=== PATIENT | female | born 1935 | race Caucasian/White ===

== ENCOUNTER 2025-06-25 21:38 | Emergency (ER) | payer MEDICARE, SELFPAY ==
[2025-06-25 21:42] VITALS: BP 160/81; BMI 34.0
[2025-06-25 21:45] VITALS: BP 160/81
[2025-06-25 22:00] VITALS: BP 156/78
--- NOTE | 2025-06-25 22:28 | ED.GENMED ---
History of Present Illness
General
Chief Complaint: Fall
Source: patient
Exam Limitations: none
Time Seen by Provider: 06/25/25 21:59
Nursing documentation reviewed up to this point in time: agreed with
History of Present Illness
History of Present Illness:
89-year-old female presents from EMS. Patient apparently slipped out of bed on her way to the bathroom and fell and hit her head on the dresser. EMS was called. She denies any headache. She is not on blood thinners as per daughter. She
complained of mild left shoulder pain but denies pain now.
Daughter reports patient was complaining today that she was not feeling well. She was incidentally found to have a temperature of 100.
Patient denies any recent cough urinary frequency urgency. Patient is not on blood thinners. no cough, no sob.
Phy Exam
General Physical Exam
General Presentation: no apparent distress
General age: appears stated age
General Skin: warm and dry
General Habitus: normal
General Mental: alert
General Hydration: appears well hydrated
Neurological Exam
Neurological Exam: alert and oriented x3
Musculoskeletal Exam
Musculoskeletal Exam: other (no obvious head injury ; no bony c spine tenderness ; no bony shoulder tenderness, full ROM to legs and arms )
Skin Exam
Skin Exam: normal color and warm/dry
Psychiatric Exam
Psychiatric Exam: normal mood/affect
Course
Orders/Labs/Results
Orders:
Orders
06/25/25 22:22
CT Head W/o Iv Contrast Urgent
Comment:
Reason For Exam: trauma
06/25/25 22:27
CT Cervical Spine W/o Iv Contr Urgent
Comment:
Reason For Exam: trauma
Shoulder, Left, Trauma CR [CR Shoulder, Trauma - Left] Urgent
Comment:
Reason For Exam: trauma
06/25/25 22:35
IV Insert/Care/Rem.- Treatment PRN
Straight cath- Treatment ONCE
06/25/25 22:42
Complete Blood Count/With Diff Urgent
Comprehensive Metabolic Panel Urgent
06/25/25 23:46
Urinalysis Reflex To Culture Urgent
Date Specimen was Collected: 06/25/25
Time Specimen was Collected: 23:45
Urine Microscopic Reflex Cult Urgent
Urine Culture Urgent
DAKSHA Source: U
Specimen Description:
Date Specimen was Collected: 06/25/25
Time Specimen was Collected: 23:45
06/26/25 00:34
Acetaminophen [Tylenol] 650 mg PO NOW STA
06/26/25 00:46
Cephalexin Monohydrate [Keflex] 250 mg PO NOW STA
06/26/25 08:00
Cephalexin Monohydrate [Keflex] 250 mg PO BID
Abnormal Lab Results
06/25/25 06/25/25
22:42 23:46
RDW 15.0 H %
(11.5-14.5)
MPV 11.5 H fL
(7.4-10.4)
Absolute Neuts (auto) 7.3 H 10^3/uL
(1.4-6.5)
Absolute Lymphs (auto) 0.6 L 10^3/uL
(1.2-3.4)
Absolute Monos (auto) 0.9 H 10^3/uL
(0.1-0.6)
Neutrophils % 81.2 H %
(42.2-75.2)
Lymphocytes % 6.9 L %
(20.5-51.1)
Monocytes % 10.4 H %
(1.7-9.3)
Glucose 100 H mg/dl
(70-99)
Urine Ketones 2+ A
(Negative)
Leukocyte Esterase Rfl 2+ A
(Negative)
Urine WBC (Reflex) 11-15 A /HPF
(0-5)
Urine Bacteria (Reflex) Few A
(Negative)
Urine Albumin (Reflex) 1+ A
(Neg - Trace)
06/25/25 22:42
06/25/25 22:42
Vital Signs
Initial and Last Documented VS:
Initial Vital Signs
Temp Pulse Resp BP Pulse Ox
100.0 F 106 20 160/81 95
06/25/25 21:42 06/25/25 21:42 06/25/25 21:42 06/25/25 21:42 06/25/25 21:42
Last Documented Vital Signs
Temp Pulse Resp BP Pulse Ox
100.0 F 100 31 147/58 95
06/25/25 21:42 06/25/25 22:40 06/25/25 22:40 06/26/25 01:00 06/26/25 01:27
Retail Shift Manager consulted with Physician
Retail Shift Manager consulted with physician?: Yes (noh )
Name of Physician Consulted: Noh
MDM/Problems Addressed
MDM/Problems Addressed:
As documented patient is an 82-year-old female who slipped out of bed today/mechanical fall daughter reports that she does live with her . Pt did complain that she did not feel well today however no fever/ uri s/s n/v/d. Incidentally
patient was found to have a temperature of 100 here in the ED.
She denies any URI symptoms denies any UTI symptoms however with low-grade fever and fall will check labs and urine.
Urine appears mildly infected. normal wbc , nml renal function. with recent fall low-grade temp and UTI will treat
Case reviewed ED physician
*Radiology
Radiology exam reviewed: radiology read reviewed
*Pulse Oximetry
SaO2: 96
Oxygen Mode of Delivery: Room air
Patient hypoxic: no
*Critical Care Note
Total Time (30-74mins, 75-104mins- exclusive of procedures): Not Applicable
ED Attending Note
-
Portions of this chart may have been created with voice recognition software.� Occasional wrong word or��sound alike� substitutions may have occurred due to the inherent limitations of voice recognition software.
Discharge Plan
Departure
Patient Disposition: Home (Routine Discharge)
Date of Disposition: 06/26/25
Time of Disposition: 00:34
Patient with high blood pressure during this ER visit?: Yes
Condition: Fair
Covid-19: Not Applicable
Discharge Problem:
Fall, Acute UTI
Instructions: Head Injury in Adults (DC), Urinary tract infection in adults - ED discharge instructions, BLOOD PRESSURE
Prescriptions:
New
cephalexin 250 mg capsule
250 mg PO BID Qty: 10 0RF
Referrals:
UNKNOWN - PT DOES,NOT KNOW [Family Provider]
Activity Restrictions/Additional Instructions:
As discussed antibiotic as directed twice a day for the next 5 days for mild urine infection.
stay well-hydrated. Closely follow-up with family doctor for reevaluation in the next severl days.
return for any worsening of symptoms
Interventions
Interventions:
*Risk Screen - Suicide Last Done: 06/25/25 21:42
*General Assessment Last Done: 06/25/25 21:42
*Neglect/Abuse Screening Last Done: 06/25/25 21:42
*ED- Fall Risk Assessment Last Done: 06/25/25 22:02
*ED COVID-19 Vaccine History Last Done: 06/25/25 21:42
*Nursing Disposition Last Done: 06/26/25 01:27
ED-Musculoskeletal Assessment Last Done: 06/25/25 22:00
ED- Neurological Assessment Last Done: 06/25/25 22:00
ED-Skin Assessment Last Done: 06/25/25 22:00
Discharge Date and Time
Discharge Date/Time: 06/26/25 01:29
Print Language: FIJIAN
[2025-06-25 22:51] LABS: Hematocrit 41.6 % (37.0-47.0); Hemoglobin 13.9 g/dL (12.0-16.0); Mean Corp Hgb Conc. 33.4 g/dL (33.0-37.0); Mean Corpuscular Volume 88.9 fL (81.0-99.0); Nucleated Red Blood Cells % 0 %; Platelet Count 183 10^3/uL (130-400); Red Cell Dist. Width 15.0 % (11.5-14.5)
[2025-06-25 23:11] LABS: ALT (SGPT) 13 U/L (0-35); AST (SGOT) 19 U/L (14-36); Albumin 4.4 g/dl (3.5-5.0); Alkaline Phosphatase 55 U/L (38-126); Blood Urea Nitrogen 15 mg/dl (7-17); Calcium 9.5 mg/dl (8.4-10.2); Carbon Dioxide 26 mmol/L (22-30); Chloride 102 mmol/L (98-107); Estimated Creatinine Clearance 60 ml/min; Glucose 100 mg/dl (70-99); Potassium 4.2 mmol/L (3.5-5.1); Sodium 135 mmol/L (135-145); Total Protein 6.7 g/dl (6.3-8.2); eGFR > 60.00
[2025-06-25 23:53] LABS: Urine Character Clear (Clear)
[2025-06-26 00:04] LABS: Urine Squamous Cell 0-2 /LPF (Few)
[2025-06-26 00:05] LABS: Urine Red Blood Cell 0-2 /HPF (0-2)
[2025-06-26] MEDS: KEFLEX 250 MG PO (00:50)
[2025-06-26] MEDS: TYLENOL 650 MG PO (00:50)
[2025-06-26 00:52] VITALS: BP 164/63
[2025-06-26 01:00] VITALS: BP 147/58
== END 2025-06-26 01:29 | disposition home or self-care (01) ==
LOC: EMR 21:38
PROVIDERS: Nurse Practitioner; EMERGENCY PHYSICIAN Emergency Medicine
DX: N39.0 Urinary tract infection, site not specified (principal); M25.512 Pain in left shoulder; W06.XXXA Fall from bed, initial encounter
CPT/HCPCS: 99284; 70450; 72125; 73030; 80053; 81003; 81015; 85025; 87086

== ENCOUNTER 2025-07-12 11:56 | Emergency (ER) | payer MEDICARE, SELFPAY ==
[2025-07-12 12:00] VITALS: BP 146/80
[2025-07-12 12:19] LABS: Hematocrit 40.7 % (37.0-47.0); Hemoglobin 13.2 g/dL (12.0-16.0); Mean Corp Hgb Conc. 32.4 g/dL (33.0-37.0); Mean Corpuscular Volume 91.3 fL (81.0-99.0); Nucleated Red Blood Cells % 0 %; Platelet Count 161 10^3/uL (130-400); Red Cell Dist. Width 14.8 % (11.5-14.5)
[2025-07-12 12:27] LABS: COVID-19 Antigen Positive (Negative)
[2025-07-12 12:35] LABS: ALT (SGPT) 22 U/L (0-35); AST (SGOT) 22 U/L (14-36); Albumin 4.6 g/dl (3.5-5.0); Alkaline Phosphatase 59 U/L (38-126); Blood Urea Nitrogen 13 mg/dl (7-17); Calcium 9.0 mg/dl (8.4-10.2); Carbon Dioxide 25 mmol/L (22-30); Chloride 105 mmol/L (98-107); Glucose 106 mg/dl (70-99); Potassium 4.2 mmol/L (3.5-5.1); Sodium 139 mmol/L (135-145); Total Protein 7.1 g/dl (6.3-8.2); eGFR > 60.00
[2025-07-12 15:42] VITALS: BMI 34.1
[2025-07-12 15:46] VITALS: BP 146/46
--- NOTE | 2025-07-12 16:08 | ED.GENMED ---
History of Present Illness
General
Chief Complaint: Cough
Source: patient and family
Exam Limitations: none
Time Seen by Provider: 07/12/25 15:21
Nursing documentation reviewed up to this point in time: agreed with
History of Present Illness
History of Present Illness:
see MDM
Past History
Past History
ED Past Medical History: Arrthythmia and HTN
ED Past Surgical History: Appendectomy, Cholecystectomy and Gynecological
Social History
Tobacco: Non-smoker
Review of Systems
Review of Systems
Allergies reviewed?: Yes
All Other Systems: Not applicable
Phy Exam
Physical Exam
Physical Exam:
GENERAL: Alert , in no apparent distress
EYE: pupils equal and reactive
NECK: Supple
ENT: b/l TM s clear, pharynx erythematous but no tonsillar hypertrophy or exudates
CARDIAC: Regular rate and rhythm, no edema
LUNGS: diminished bs bases b/l end
ABDOMEN: Soft, without focal tenderness, no r/g, no cvat, normal bowel sounds
NEUROLOGICAL: Alert and oriented, no focal neuro deficits
SKIN: Warm and dry, skin intact.
MUSCULOSKELETAL: No edema, well perfused.
PSYCH: Normal and appropriate interaction.
Course
Orders/Labs/Results
Orders:
Orders
07/12/25 12:04
COVID-19 Antigen Urgent
Source: Nasal Swab
Complete Blood Count/With Diff Urgent
Comprehensive Metabolic Panel Urgent
Influenza A+B Rapid Molecular Urgent
DAKSHA Source: Nasal Swab
Specimen Description:
07/12/25 15:57
CR Chest - 2 Views Urgent
Comment:
Reason For Exam: cough x 3 weeks
07/12/25 17:29
Azithromycin [Zithromax] 500 mg PO NOW STA
Benzonatate [Tessalon Perles] 200 mg PO NOW STA
Abnormal Lab Results
07/12/25
12:04
MCHC 32.4 L g/dL
(33.0-37.0)
RDW 14.8 H %
(11.5-14.5)
MPV 12.1 H fL
(7.4-10.4)
Absolute Neuts (auto) 7.6 H 10^3/uL
(1.4-6.5)
Absolute Monos (auto) 0.7 H 10^3/uL
(0.1-0.6)
Lymphocytes % 16.5 L %
(20.5-51.1)
Glucose 106 H mg/dl
(70-99)
SARS-CoV-2 Antigen Positive A
(Negative)
07/12/25 12:04
07/12/25 12:04
Vital Signs
Initial and Last Documented VS:
Initial Vital Signs
Temp Pulse Resp BP Pulse Ox
37.1 C 67 16 146/80 97
07/12/25 12:00 07/12/25 12:00 07/12/25 12:00 07/12/25 12:00 07/12/25 12:00
Last Documented Vital Signs
Temp Pulse Resp BP Pulse Ox
36.8 C 80 20 123/107 99
07/12/25 17:56 07/12/25 17:56 07/12/25 17:56 07/12/25 17:56 07/12/25 17:56
MDM/Problems Addressed
Differential Diagnosis Includes:
see MDM
MDM/Problems Addressed:
Note:
CHIEF COMPLAINT(S)
Cough with sputum production for three weeks.
HISTORY OF PRESENT ILLNESS
The patient is an 89-year-old female who presents with a persistent cough ongoing for approximately three weeks. Her daughter, who is her primary caretaker grounds and a nurse, reports that the patient has been reluctant to seek medical care until today.
The cough is productive, with the patient expectorating yellowish green sputum. The patient denies chest pain but experiences shortness of breath upon exertion whic his baseline; The daughter mentioned that the patient is supposed to use a Pulmicort
inhaler, prescribed for cardiac asthma by a tandem mill roller, but has not been using it. The patient tested positive for COVID-19, which was confirmed by testing, but has not been tested at home. The cough has been significant enough to disturb her
sleep.
She also has underlying heart disease, monitored blood pressure, and is currently managed with medications but denies any current chest pain.
PAST MEDICAL AND SURIGICAL HISTORY
The daughter mentioned management with medications that include Lasix (furosemide), Levothyroxine, Potassium supplements, Vitamin D, and Prednisone. The patient is known to have heart disease and hypertension.
CHRONIC MEDICAL CONDITIONS SIGNIFICANTLY AFFECTING CARE
Chronic heart disease and hypertension.
SOCIAL DETERMINANTS AFFECTING HEALTH
The patient resides with her spouse [place] her [place] and is primarily cared for by her daughter, who is also a nurse. The patient�s spouse has dementia and her son is often away at work, which affects her social support structure.
SOCIAL HISTORY
The patient [place] with her spouse, who has dementia. Her daughter is her primary caretaker grounds, and her son is frequently at work outside the home.
REVIEW OF SYSTEMS
- Respiratory: Cough with yellowish green sputum, shortness of breath on exertion.
- Cardiovascular: Denies chest pain.
- Neurologic: History of right facial weakness and eye dryness.
PHYSICAL EXAM
- Respiratory: Decreased breath sounds at lung bases with some expiratory wheezes noted.
- Neurologic: Minimal facial weakness affecting the right eye and lip noted.
- Nursing notes reviewed and vital signs reviewed.
PLAN
1. Obtain a chest X-ray to evaluate for potential pneumonia.
2. Prescribe an Albuterol inhaler to aid with cough management.
3. Consider antibiotics if chest X-ray suggests pneumonia.
4. Evaluate home use of a nebulizer and provide the necessary medication if needed.
5. Consider prescription of an antitussive like Tessalon Perles to aid sleep disturbed by cough.
6. Monitor oxygen levels to ensure suitability for home care versus hospitalization.
DIFFERENTIAL DIAGNOSIS
The Differential Diagnosis includes, in no particular order and is not limited to:
1. COVID-19 infection
2. Pneumonia
3. Asthma exacerbation
4. Chronic obstructive pulmonary disease (COPD)
5. Heart failure exacerbation
6. Bronchitis
7. Allergic reaction
8. Sinusitis with post-nasal drip
9. Gastroesophageal reflux disease (GERD) with aspiration
10. Tuberculosis
CARE-UPDATE
07/12/25 - 17:29
Patient with history of COPD who presents with 3 weeks of symptoms of a cough which is productive but without significant shortness of breath, change from baseline, and without chest pain. She happens to be COVID-positive and is not sure when she
got COVID since the symptoms have been going on so long. She is otherwise very well-appearing, not hypoxic and can walk around without significant exertional dyspnea. Her labs are reassuring. Her chest x-ray was independently reviewed and
negative for pneumonia but has mild atelectasis so I will treat her with a Z-Howie. Patient is already on oral steroids for her rheumatoid arthritis which she just started so I am not going to increase this, she is not significantly wheezing but she
was on Pulmicort before and ran out far we will refill that. The patient appears to have nmild atelectasis mucus plugging, suggestive of early pneumonia or a COPD exacerbation. Plan includes starting azithromycin (Z-pack) with the first dose
administered here and the remaining four pills to be picked up at the pharmacy. Albuterol nebulizer solution is recommended every four to six hours as needed. Prescriptions for Formicourt Flexi-haler (180 mcg) for 90 days and albuterol have been
called into the pharmacy. The patient is advised to return if symptoms worsen, such as new fever, increased shortness of breath, chest pain, or mobility issues. For the patients , who has been coughing, Robitussin for cough management,
Tylenol, fluids, and Mucinex (without D) are recommended, considering his high blood pressure.
*Pulse Oximetry
SaO2: 97
Oxygen Mode of Delivery: Room air
Patient hypoxic: no (97)
*Critical Care Note
Total Time (30-74mins, 75-104mins- exclusive of procedures): Not Applicable
ED Attending Note
-
Portions of this chart may have been created with voice recognition software.� Occasional wrong word or��sound alike� substitutions may have occurred due to the inherent limitations of voice recognition software.
Discharge Plan
Departure
Patient Disposition: Home (Routine Discharge)
Date of Disposition: 07/12/25
Time of Disposition: 17:33
Patient with high blood pressure during this ER visit?: No
Condition: Fair
Discharge Problem:
COPD exacerbation, COVID-19
Instructions: Chronic obstructive pulmonary disease (COPD) - Discharge instructions, COVID-19 - ED discharge instructions
Prescriptions:
New
azithromycin [Zithromax] 250 mg tablet
250 mg PO DAILY Qty: 4 0RF
benzonatate 100 mg capsule
100 mg PO BID PRN (Reason: Cough) Qty: 12 0RF
albuterol sulfate [Ventolin HFA] 90 mcg/actuation HFA aerosol inhaler
2 puff inhalation Q6H PRN (Reason: shortness of breath or wheezing) Qty: 6.7 0RF
Pulmicort Flexhaler 90 mcg/actuation aerosol powdr breath activated
1 inh inhalation Q12H Qty: 1 0RF
No Action
cephalexin 250 mg capsule
250 mg PO BID Qty: 10 0RF
Referrals:
UNKNOWN - PT DOES,NOT KNOW [Family Provider]
Activity Restrictions/Additional Instructions:
YOUR CHEST XRAY DID NOT SHOW PNEUMONIA
YOU TESTED POSITIVE FOR COVID
THIS IS PROBABLY THE CAUSE OF YOUR COUGH BUT WE WILL TREAT YOU WITH ANTIBIOTICS BECAUSE OF YOUR COPD
USE ALBUTEROL INHAER 1-2 PUFFS EVERY 4-6 HOURS FOR YOUR COUGH
OR
YOU CAN USE THE NEBULIZER MACHINE EVERY 4-6 HOURS FOR THE COUGH/WHEEZING
TAKE YOUR PULMICORT INHALER DIRECTED
TAKE ZITHROMAX ONCE A DAY FOR 4 DAYS STARTING TOMORROW.
RETURN FOR: WORSENING CHEST PAIN/SHORTNESS OF BREATH, FEVER, VOMITING, BLOODY COUGH OR ANY CONCERNS.
Interventions
Interventions:
*Risk Screen - Suicide Last Done: 07/12/25 12:02
*General Assessment Last Done: 07/12/25 15:48
*Neglect/Abuse Screening Last Done: 07/12/25 12:02
*ED- Fall Risk Assessment Last Done: 07/12/25 15:57
*ED COVID-19 Vaccine History Last Done: 07/12/25 15:57
*Nursing Disposition Last Done: 07/12/25 17:56
ED- Pulmonary Assessment Last Done: 07/12/25 15:53
Discharge Date and Time
Discharge Date/Time: 07/12/25 17:57
Print Language: PORTUGUESE
[2025-07-12] MEDS: ZITHROMAX 500 MG PO (17:37)
[2025-07-12] MEDS: TESSALON PERLES 200 MG PO (17:37)
[2025-07-12 17:56] VITALS: BP 123/107
== END 2025-07-12 17:57 | disposition home or self-care (01) ==
LOC: EMR 11:56
PROVIDERS: Student in an Organized Health Care Education/Training Program; EMERGENCY PHYSICIAN Emergency Medicine
DX: J44.1 Chronic obstructive pulmonary disease with (acute) exacerbation (principal); U07.1 COVID-19; I11.9 Hypertensive heart disease without heart failure; I49.9 Cardiac arrhythmia, unspecified; M06.9 Rheumatoid arthritis, unspecified
CPT/HCPCS: 99284; 71046; 80053; 85025; 87502; 87811

== ENCOUNTER 2025-08-31 16:06 | Emergency (ER) | payer MEDICARE, SELFPAY ==
[2025-08-31 16:08] VITALS: BP 174/89
[2025-08-31 16:40] LABS: Hematocrit 44.3 % (37.0-47.0); Hemoglobin 14.4 g/dL (12.0-16.0); Mean Corp Hgb Conc. 32.5 g/dL (33.0-37.0); Mean Corpuscular Volume 90.6 fL (81.0-99.0); Nucleated Red Blood Cells % 0 %; Platelet Count 187 10^3/uL (130-400); Red Cell Dist. Width 15.4 % (11.5-14.5)
[2025-08-31 16:59] VITALS: BMI 35.1
[2025-08-31 17:02] LABS: ALT (SGPT) 20 U/L (0-35); AST (SGOT) 23 U/L (14-36); Albumin 5.2 g/dl (3.5-5.0); Alkaline Phosphatase 59 U/L (38-126); Blood Urea Nitrogen 18 mg/dl (7-17); Calcium 9.8 mg/dl (8.4-10.2); Carbon Dioxide 25 mmol/L (22-30); Chloride 104 mmol/L (98-107); Estimated Creatinine Clearance 53 ml/min; Glucose 117 mg/dl (70-99); Potassium 4.1 mmol/L (3.5-5.1); Sodium 139 mmol/L (135-145); Total Protein 7.7 g/dl (6.3-8.2); eGFR > 60.00
[2025-08-31 17:08] VITALS: BP 155/75
--- NOTE | 2025-08-31 17:42 | ED.GENMED ---
History of Present Illness
General
Chief Complaint: Skin Problem
Source: patient and spouse
Exam Limitations: none
Time Seen by Provider: 08/31/25 17:27
Nursing documentation reviewed up to this point in time: agreed with
History of Present Illness
History of Present Illness:
Note:
CHIEF COMPLAINT(S)
Swollen and red right leg.
HISTORY OF PRESENT ILLNESS
The patient is an 89-year-old female who has been experiencing swelling and redness in her right leg since Friday. Initially, she mentioned that her leg did not feel right but appeared normal. Her condition progressed, and by this morning, she
reported that the leg was both swollen and red. The swelling and redness are primarily in the right leg, but there are now some symptoms in the left leg as well. She is quite immobile, suggesting limited physical movement, which raised concerns
about potential deep vein thrombosis (DVT). However, the bilateral leg symptoms prompted consideration of other possibilities, such as cellulitis. The patient denies any chills or fever and has a history of right knee replacement many years ago.
PAST MEDICAL AND SURGICAL HISTORY
The patient has undergone a right knee replacement surgery.
ALLERGIES
The patient reports an allergy to Penicillin, which caused a rash when she was a child.
REVIEW OF SYSTEMS
- Musculoskeletal: Swelling and redness in the right leg with some symptoms now appearing in the left leg.
- General: Denies chills or fever.
- Respiratory: No issues with breathing.
PHYSICAL EXAM
General: Alert, no acute distress.
Pulmonary lungs clear bilaterally
Cardiovascular normal pulses in all extremities, S1-S2 no S3-S4
Skin: Right leg swollen and red.
Musculoskeletal: Swelling and redness in the right leg, with symptoms beginning in the left leg.
PLAN
1. Perform an ultrasound of both legs to rule out the presence of blood clots.
2. If no blood clots are identified, treat suspected cellulitis with oral antibiotics, potentially Cephalexin (Keflex), given past tolerability with similar antibiotics.
3. Discharge planning considering home management is feasible if ultrasound is negative and the infection is treated with antibiotics.
DIFFERENTIAL DIAGNOSIS
The Differential Diagnosis includes, in no particular order and is not limited to:
1. Deep Vein Thrombosis (DVT)
2. Cellulitis
3. Bilateral Venous Insufficiency
4. Lymphedema
5. Chronic Venous Insufficiency
6. Erythema Nodosum
7. Thrombophlebitis
8. Peripheral Arterial Disease
9. Drug-Induced Edema
10. Gout
CARE-UPDATE
08/31/25 - 21:57
Ultrasound is negative for DVT in the right lower extremity. Initiating treatment with Keflex for cellulitis. Patient is stable and cleared for discharge.
Disposition:
SUMMARY OF ENCOUNTER
The patient was seen in the emergency department due to swelling and redness in the right leg, suspecting either DVT or cellulitis. An ultrasound confirmed the absence of DVT. The diagnosis of lower extremity cellulitis was made, and treatment
initiated with cephalexin (Keflex). The patient is stable, afebrile, and exhibits no signs of sepsis.
DISPOSITION
Discharge
ASSESSMENT
Lower extremity cellulitis, absence of DVT.
INDEPENDENT REVIEW OF LABS AND INTERPRETATION OF TESTS
My independent ultrasound interpretation of the right lower extremity is negative for DVT.
PATIENT EDUCATION AND COUNSELING
Patient and her daughter were informed about the diagnosis of cellulitis and the treatment plan with Keflex. They were advised on home care management and to watch for term precautions.
FOLLOW-UP INSTRUCTIONS
Follow up with primary care.
MEDICATION RECONCILIATION
Prescribed cephalexin (Keflex) for cellulitis treatment.
MEDICAL DECISION MAKING
- Number and Complexity of Problems Addressed: Chronic conditions affecting care, right knee replacement; Differential diagnosis considered includes DVT, cellulitis, and other vascular conditions.
- Data:
- Category 1: My independent review of the ultrasound confirmed there was no DVT.
- Risk: Consideration of Admission/Observation: Escalation of care including admission/observation was considered given the complexity and risk of the patients presenting complaint. However, I feel the patient is safe for outpatient management with
close follow-up. Reasoning: Work-up reassuring, no acute life/organ threatening processes, patients symptoms well controlled upon reevaluation, reexamination is reassuring, vitals are stable, patient agreeable with discharge, reliable for follow-up.
Prescription medication was prescribed: cephalexin (Keflex).
DIAGNOSIS
Cellulitis of lower limb (ICD-10: L03.116)
Past History
Past History
ED Past Medical History: Arrthythmia and HTN
ED Past Surgical History: Appendectomy, Cholecystectomy and Gynecological
Social History
Tobacco: Non-smoker
Phy Exam
Physical Exam
Physical Exam:
.
Course
Orders/Labs/Results
Orders:
Orders
08/31/25 16:18
CMP [Comprehensive Metabolic Panel] Urgent
Complete Blood Count/With Diff Urgent
08/31/25 17:36
US Periph Venous LOWER Ext Antwan Urgent
Comment:
Reason For Exam: bilateral leg swelling
08/31/25 21:55
Cephalexin Monohydrate [Keflex] 500 mg PO NOW STA
Abnormal Lab Results
08/31/25
16:18
WBC 10.9 H 10^3/uL
(4.8-10.8)
MCHC 32.5 L g/dL
(33.0-37.0)
RDW 15.4 H %
(11.5-14.5)
MPV 12.1 H fL
(7.4-10.4)
Absolute Neuts (auto) 7.5 H 10^3/uL
(1.4-6.5)
Absolute Monos (auto) 0.8 H 10^3/uL
(0.1-0.6)
Lymphocytes % 19.0 L %
(20.5-51.1)
BUN 18 H mg/dl
(7-17)
Glucose 117 H mg/dl
(70-99)
Albumin 5.2 H g/dl
(3.5-5.0)
08/31/25 16:18
08/31/25 16:18
Vital Signs
Initial and Last Documented VS:
Initial Vital Signs
Temp Pulse Resp BP Pulse Ox
98.6 F 102 20 174/89 96
08/31/25 16:08 08/31/25 16:08 08/31/25 16:08 08/31/25 16:08 08/31/25 16:08
Last Documented Vital Signs
Temp Pulse Resp BP Pulse Ox
98.6 F 92 18 159/64 93
08/31/25 17:08 08/31/25 17:08 08/31/25 17:08 08/31/25 21:00 08/31/25 21:45
*Pulse Oximetry
SaO2: 95
Oxygen Mode of Delivery: Room air
Patient hypoxic: no
*Critical Care Note
Total Time (30-74mins, 75-104mins- exclusive of procedures): Not Applicable
ED Attending Note
-
Portions of this chart may have been created with voice recognition software.� Occasional wrong word or��sound alike� substitutions may have occurred due to the inherent limitations of voice recognition software.
Discharge Plan
Departure
Patient Disposition: Home (Routine Discharge)
Date of Disposition: 08/31/25
Time of Disposition: 21:57
Patient with high blood pressure during this ER visit?: Yes
Condition: Good
Discharge Problem:
Cellulitis of right leg
Instructions: Cellulitis (Skin Infection), Adult (DC), BLOOD PRESSURE
Prescriptions:
New
cephalexin 500 mg capsule
500 mg PO BID 7 Days Qty: 14 0RF
No Action
cephalexin 250 mg capsule
250 mg PO BID Qty: 10 0RF
azithromycin [Zithromax] 250 mg tablet
250 mg PO DAILY Qty: 4 0RF
benzonatate 100 mg capsule
100 mg PO BID PRN (Reason: Cough) Qty: 12 0RF
albuterol sulfate [Ventolin HFA] 90 mcg/actuation HFA aerosol inhaler
2 puff inhalation Q6H PRN (Reason: shortness of breath or wheezing) Qty: 6.7 0RF
Pulmicort Flexhaler 90 mcg/actuation aerosol powdr breath activated
1 inh inhalation Q12H Qty: 1 0RF
Referrals:
UNKNOWN - PT DOES,NOT KNOW [Unknown Provider]
Activity Restrictions/Additional Instructions:
Return for any concerns. Follow up with primary care.
Interventions
Interventions:
*Risk Screen - Suicide Last Done: 08/31/25 17:00
*General Assessment Last Done: 08/31/25 16:08
*Neglect/Abuse Screening Last Done: 08/31/25 17:00
*ED- Fall Risk Assessment Last Done: 08/31/25 17:00
*ED COVID-19 Vaccine History Last Done: 08/31/25 17:00
*ED Influenza Vaccine History Last Done: 08/31/25 17:00
ED-Skin Assessment Last Done: 08/31/25 17:02
Discharge Date and Time
Print Language: BULGARIAN
[2025-08-31 18:00] VITALS: BP 153/72
[2025-08-31 19:00] VITALS: BP 161/65
[2025-08-31 20:12] VITALS: BP 141/65
[2025-08-31 21:00] VITALS: BP 159/64
[2025-08-31] MEDS: KEFLEX 500 MG PO (22:07)
== END 2025-08-31 22:19 | disposition home or self-care (01) ==
LOC: EMR 16:06
PROVIDERS: Emergency Medicine; EMERGENCY PHYSICIAN Emergency Medicine; FAMILY PHYSICIAN Family Medicine
DX: L03.115 Cellulitis of right lower limb (principal); I10 Essential (primary) hypertension; Z88.0 Allergy status to penicillin; Z96.651 Presence of right artificial knee joint
CPT/HCPCS: 99284; 80053; 85025; 93970